=== PATIENT | male | born 1995 | race Caucasian/White ===

== ENCOUNTER 2020-12-22 17:48 | Emergency (ER) | payer BC ==
[~2020-12-22] VITALS: Ht 177.8 cm; Wt 106.6 kg
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
[2020-12-22] MEDS ORDERED: IBUP-1957 PO (19:05)
[2020-12-22 19:09] VITALS: BP 128/75
== END 2020-12-22 19:10 | disposition home or self-care (01) ==
LOC: ER 17:55
DX: S40.012A Contusion of left shoulder, initial encounter (principal); V49.49XA Driver injured in collision with other motor vehicles in traffic accident, initial encounter; Y93.89 Activity, other specified; Y92.413 State road as the place of occurrence of the external cause; Y99.8 Other external cause status
CPT/HCPCS: 73030-TC